=== PATIENT | female | born 1960 | race Caucasian/White ===

== ENCOUNTER → 2018-07-01 16:16 | Outpatient (REF) | payer BC, SELFPAY ==
--- NOTE | 2018-07-01 15:30 | PAPFT_PTH ---
PATIENT: Maegan Putnam LOC: [facility] U#:[id number] AGE/SX: 65/F ROOM: RE07/01/[address]: Lena Kinsey MD : 1960 BED: DIS: SPEC #: [id number] RECD: 07/01/18 18:15 STATUS: JACIEL REQ #: [id number] ELADIO: 07/01/18 15:[address]: Lena Kelley DEPT: [facility] Cytology RECD BY: Maren Harrison Tissues: 1 - CX/ENDOCX FOR PAP SMEARS Procedures: PAP THIN PREP/UVM Screening HPV DNA PROBE Comments: [id number]
== END ==
LOC: LBN 16:16
PROVIDERS: PCP Internal Medicine; Visit Provider Internal Medicine
DX: Z12.4 Encounter for screening for malignant neoplasm of cervix (principal); Z11.51 Encounter for screening for human papillomavirus (HPV)
CPT/HCPCS: 88142; 87624

== ENCOUNTER → 2018-07-05 10:14 | Outpatient (CLI) | payer BC, SELFPAY ==
[2018-07-05 12:54] LABS: Abs Immature Grans 0.01 k/cumm (0.0-0.09); Absolute Basophil Count 0.04 k/cumm (0.0-0.2); Absolute Eosinophil Count 0.21 k/cumm (0.0-0.7); Absolute Lymphocyte Count 2.65 k/cumm (1.2-3.4); Absolute Monocyte Count 0.48 k/cumm (0.11-0.7); Absolute Neutrophil Count 2.82 k/cumm (1.2-6.7); Basophils % 0.6; Eosinophils % 3.4; HCT 39.3 % (36.0-46.0); HGB 12.7 g/dL (12.0-15.5); Immature Grans % 0.2; Lymphocytes % 42.7; Mean Corp. HGB Concentration 32.3 g/dL (32.0-36.0); Mean Corpuscular Hemoglobin 30.2 pg (27.0-33.0); Mean Corpuscular Volume 93.3 fL (80-95); Mean Platelet Volume 11.9 fL (8.0-11.0); Monocytes % 7.7; Neutrophils % 45.4; Platelet Count 232 x1000/uL (130-400); RBC 4.21 m/cumm (4.00-5.20); RBC Distribution Width 12.6 % (11.7-14.6); White Blood Cell Count 6.21 k/cumm (4.4-10.8)
[2018-07-05 13:09] LABS: ALT 27 U/L (12-78); AST 24 U/L (15-37); Albumin 3.8 g/dL (3.4-5.0); Alkaline Phosphatase 89 U/L (46-116); Anion Gap 7.5 mmol/L (3-11); BUN 14 mg/dL (7-18); Bilirubin, Total 0.4 mg/dL (0.2-1.0); CO2 29.5 mmol/L (21.0-32.0); CREATININE 0.87 mg/dL (0.55-1.02); Calcium 9.2 mg/dL (8.5-10.1); Chloride 104 mmol/L (98-107); Glucose 86 mg/dL (70-100); Potassium 4.2 mmol/L (3.5-5.1); Sodium 141 mmol/L (136-145); Total Protein 7.3 g/dL (6.4-8.2)
== END ==
PROVIDERS: PCP Internal Medicine; Visit Provider Internal Medicine
DX: D64.9 Anemia, unspecified (principal); J30.9 Allergic rhinitis, unspecified; R92.8 Other abnormal and inconclusive findings on diagnostic imaging of breast
CPT/HCPCS: 36415; 80053; 85025

== ENCOUNTER 2018-07-05 14:00 | Outpatient (RCR) | payer BC, SELFPAY ==
--- NOTE | 2018-06-27 13:00 | IE_ITS ---
Date: 06/27/18 Referring: Graham Moreno MD M.D. Diagnosis: Right rotator cuff tendinitis versus partial tear P.T. Diagnosis: Right rotator cuff pathology SUBJECTIVE: History of Present Illness: Patient is a 58 year old female presenting with right shoulder pain that began after falling and landing on her outstretched arm about 5 and a half weeks ago. She tripped when she was walking and landed on her right arm and left knee. She describes her shoulder pain as achy that goes down anterior arm into lateral forearm. She feels occasional numbness in forearm. She feels like her arm popped out of place. X-rays of right shoulder were negative. She received corticosteroid injection from Dr. Moreno last week which she states made it feel really sore over the weekend but now she feels like she can move it a lot better than before the injection. She is able to wash her hair, get dressed easier, and reach better. She states she feels like her shoulder is 75% better since the fall. She is unable to lay flat at night in bed due to the pain. She is sleeping okay in an upright elevated position on her couch. She states ice helps. She has not tried heat. She is taking ibuprofen as needed for pain. She has follow up appointment in 2 months and is to call Dr. Moreno in 3 weeks to say how she s doing to see if an MRI is needed. She is having difficulty lifting arm overhead and reaching overhead. She is able to do housework using mostly her left side. She has difficulty doing yard work and is unable to kayak. She feels like she is lacking strength. She is right hand dominant. Her goal of physical therapy is to get her shoulder back to normal and avoid surgery. Pain Ratin-2/10 at rest, 5/10 at worst Pain Location: right shoulder down anterior arm to lateral forearm. Prior Level of Function: independent Current Level of Function: difficulty sleeping laying flat, lifting arm, reaching activities, yard work, kayaking Previous Treatment: Received corticosteroid injection by Dr. Moreno Social: Lives in home with her . She does not work. Comorbidities: none per patient report Falls in the last year: __X_Yes - How many? _1 in which this injury occurred Reported hospitalizations in the last year - No Medications: ibuprofen Quality of Life: Excellent Standardized Measures: DASH score: 32% impaired OBJECTIVE: Posture: rounded shoulders, forward head, thoracic kyphosis Gait: independent Palpation: slight tenderness over right greater tuberosity and biceps muscle belly. ROM: Cervical AROM flexion 50 degrees, extension 45 degrees, SB 35 degrees bilaterally, rotation WNL bilaterally. All motions pain free. Elbow flexion and extension WNL bilaterally. Right shoulder AROM flexion 135 degrees, abduction 100 degrees, extension 40 degrees, FIR to T8, ER 30 degrees. Left shoulder AROM flexion 150 degrees, abduction 170 degrees, extension 40 degrees, FIR to T6. Right shoulder PROM flexion 135 degrees, abduction 100 degrees, ER 30 degrees. Joint Accessory Motion: Slight hypomobility right glenohumeral into inferior and posterior directions. Strength: Right shoulder flexors 5/5, extensors 5/5, abductors 4+/5, IR 5/5, ER 4/5. Left shoulder strength 5/5 all muscle groups. Elbow strength 5/5 bilaterally. Neuro: intact to light touch bilateral UEs. Special Tests: Hawkin s Jared negative, Empty can positive for pain and weakness, Speeds positive for pain and weakness, Drop arm negative Treatment: IE: 51062 Patient Education: Patient educated in home exercise program including pendulums , scapular retraction, backwards shoulder rolls, ER door frame stretch, and supine wand flexion and to ice at home. Educated in importance of maintaining upright posture. Manual therapy: Right glenohumeral joint caudal distraction. Grade 1/2 inferior and posterior glenohumeral joint mobilizations. STM right anterior and posterior cuff, upper trapezius, and levator scapula. Cryotherapy x10 minutes to right shoulder in seated position. Direct treatment time: 50 minutes Total treatment time: 50 minutes ASSESSMENT: Patient is a 58 year-old female referred for PT services with the diagnosis of right rotator cuff tendinitis versus partial tear. Patient presents with clinical signs and symptoms consistent with right rotator cuff pathology as demonstrated by the following impairment level findings: pain, decreased ROM, impaired posture, decreased motor control Impairments are contributing to the following functional limitations: difficulty sleeping laying flat, lifting arm, reaching activities, yard work, kayaking Patient is assessed as: Low 09167 complexity, based on the following: History: See comorbidities and social history. Examination: See above for functional limitations and impairments. Presentation: Stable Decision-Making: Low complexity 32 % Disability based on DASH Patient requires skilled PT intervention to remediate the above functional limitations to return to: _X__ Premorbid level of function _X___ Return to full functional mobility Prognosis: Good STG: __4__ weeks. 1. Patient will report no more than 3/10 pain in the right shoulder and arm 2. Patient will demonstrate 10 degree improvement or better in right shoulder flexion, abduction, and ER AROM. 3. Patient will score 25% impaired or less on the DASH. 4. Independent HEP. LTG: __8__ weeks. 1. Patient will report no more than 2/10 pain in right shoulder and arm. 2. Patient will demonstrate right shoulder AROM WNL and equal to that of the left side. 3. Patient will demonstrate 5/5 strength all muscle groups right shoulder. 4. Patient will score 10% impaired or less on the DASH. 5. Independent HEP PLAN: Patient to be seen 2 x per week, for 8 weeks, adjusting frequency of visits per patient symptoms and response to treatment. If no improvements seen in 4-6 weeks recommend return to ortho for further intervention Treatment to include: Manual therapy - 76130: PROM, soft tissue stretching, joint mobilizations, STM, cross friction massage, TP release Therapeutic exercise - 67972:. A/AAROM, scapular stabilization, rotator cuff strengthening, education in HEP Postural and body mechanics education, taping techniques, cryotherapy and therapeutic ultrasound for pain relief. Will plan on discharge when above goals have been met. Thank you for this referral. Please do not hesitate to contact me with any questions or concerns regarding this patient's plan of care. Rena Kingsley, SPT Kelsey Barclay, MPT
--- NOTE | 2018-07-02 15:45 | PTTR_ITS ---
DATE: 07/02/18 SUBJECTIVE: Indicated her right shoulder has been extremely uncomfortable the last couple days. Has tried to perform her HEP but this just seems to make the pain worse, especially the cane stretch over head while lying on back. OBJECTIVE: Manual therapy: ([id number]). Mobilization of right mirtha-hum jt while in supine consisting of inferior and posterior glides, caudal and lateral distraction, as well as gentle AAROM throughout all planes. Very guarded with end range flexion at approximately 160 degrees. Was able to actively elevate arm to approximately 140 degrees while in standing today and 90 degrees abduction, with range limited by subjective report of discomfort. Also, very sensitive with end range IR, achieving only about 30 degrees active assistive ROM. Performed TFM to anterior cuff, PRT to posterior cuff and TPM to upper traps and lev scap. Indicated soft tissue work in the back of the shoulder was tender but felt really good. Therapeutic procedures ([id number]). * x HEP review: Discussed holding on cane stretch for end range flexion for a few days, substituting this with wall slides with left UE assisting or kevin flexion stretch with arm resting on table leaning forward. Is to continue with pendulums, scap retraction and shoulder circles, which she is able to demonstrate without increased discomfort. * x Provided skilled instruction in proper exercise performance * x Provided skilled manual cues to facilitate proper muscle recruitment and/ or movement pattern * x Electrical Stim Unattended - [id number]: Ended session with IFC and cryotherapy x15 minutes to right shoulder while in seated position. Discussed adding phonophoresis to program next session with supervising PT. Direct treatment time: 45 minutes Total treatment time: 60 minutes
--- NOTE | 2018-07-05 14:00 | PTTR_ITS ---
DATE: 07/05/18 SUBJECTIVE: Maegan indicates today that she was definitely noting improvement following our last therapy session. Has been holding on cane stretching and has been utilizing flexion stretch in the shower, sliding R arm up wall with help from the L and has found this to work very well. Ultrasound [id number]: Did receive ultrasound a 3 mhz, 50% duty cycle at 1.0w/cm2 to the R anterior cuff region x8 mins at 3 mhz, 50% duty cycle. Manual therapy: ([id number]). Did receive mobilization of the R GH joint while in supine position. Mobilization did include inferior/posterior glides, caudal distraction and AAROM throughout all planes as well as transverse friction massage to the anterior cuff, positional release to the posterior cuff and brief trigger point work throughout the upper traps. Post mobilization, the patient was able to actively achieve approximately 160 degrees of end range elevation with slight sensitivity and substitution. Therapeutic procedures ([id number]). Did start patient on AAROM with ranger pulleys today which she tolerated very well getting arm to approximately 160 degrees of flexion without discomfort, must end range pulling. Was able to tolerate this for approximately 3 mins. She also performed scap retraction with foam roll for 15 reps, holding for 3 seconds each. Review pendulum exercises to continue to do at home to help unload shoulder. Ended with IFC with cryotherapy x10 mins in seated position at no charge. Direct treatment time: 40 mins Total treatment time: 55 mins SG/dl
--- NOTE | 2018-07-09 09:01 | NT_ITS ---
07/09/18 Patient called and canc her appt for Sunday stating she was going to be leaving to go out of town for a few days. She will call to reschedule when she returns. SG/dl
== END 2018-07-19 23:59 | disposition home or self-care (01) ==
LOC: PT 14:00
PROVIDERS: PCP Internal Medicine; Referring Provider Student in an Organized Health Care Education/Training Program; Visit Provider Student in an Organized Health Care Education/Training Program
DX: M65.811 Other synovitis and tenosynovitis, right shoulder (principal)
CPT/HCPCS: 97014; 97035; 97110; 97140; 97161

== ENCOUNTER 2018-07-29 00:18 | Outpatient (CLI) | payer BC, SELFPAY ==
--- NOTE | 2018-07-29 11:49 | DI.MRI_ITS ---
SYMPTOM/DIAGNOSIS: RT SHOULDER INJURY M07.911, S49.91X, PAIN MRI RIGHT SHOULDER: Comparison is made with plain films dated 22 May 2018. Proton density and FS T2 axial and coronal and T1 FS T2 sagittal sequences were performed. There is a small joint effusion as well as fluid in the subacromial subdeltoid bursa. There is a full thickness tear of the supraspinatus tendon with retraction at the level of the tip of the acromion. There is no significant muscle atrophy. There is also abnormal signal in the infraspinatus tendon which appears at least partially torn. Subchondral cysts are seen in the posterior humeral head. The biceps, subscapularis and teres minor tendons appear intact. The labral defects are seen. Degenerative changes are noted in the superior labrum. IMPRESSION: Full thickness tear of the supraspinatus tendon with retraction. At least partial tear of the infraspinatus tendon.
== END 2018-07-29 00:38 ==
PROVIDERS: PCP Internal Medicine; Visit Provider Student in an Organized Health Care Education/Training Program
DX: M25.511 Pain in right shoulder (principal); M75.101 Unspecified rotator cuff tear or rupture of right shoulder, not specified as traumatic
CPT/HCPCS: 73221

== ENCOUNTER 2018-09-05 01:30 | Outpatient (CLI) | payer BC, SELFPAY ==
--- NOTE | 2018-09-05 12:16 | DI.MAMMO_ITS ---
SYMPTOM/DIAGNOSIS: SCREENING, Z12.31 MAMMOGRAMS: Mammograms were interpreted according to the usual protocol including computer analysis with CAD system, tomosynthesis and C view imaging. The breasts are of moderate radiodensity. There is no mass. There are no suspicious calcifications and there has been no significant interval change when compared with prior images. SUMMARY: No evidence of malignancy. Category 1. Follow up surveillance with routine annual screening mammography is recommended. Breast density, category B. SA ASSESSMENT OF FINDINGS: Negative. Category 1. Patient will receive a letter notifying them of these results. BI-RADS category B. There are scattered areas of fibroglandular density.
== END 2018-09-05 01:50 ==
PROVIDERS: PCP Internal Medicine; Visit Provider Internal Medicine
DX: Z12.31 Encounter for screening mammogram for malignant neoplasm of breast (principal)
CPT/HCPCS: 77063; 77067

== ENCOUNTER 2018-09-16 08:55 | Outpatient (CLI) | payer BC, SELFPAY ==
--- NOTE | 2018-09-16 12:51 | W.PREOPHP ---
Date of service: 09/16/18 Assessment and Plan (1) Right rotator cuff tear: Current visit: No Status: Acute Right rotator cuff repair. Details of surgery were discussed with patient as well as risks, and pertinent anatomy. All questions were answered. History of Present Illness Chief Complaint: Right shoulder injury Narrative: Maegan is a 58-year-old female who is been complaining of right shoulder pain since an injury that she sustained back in May. She states that she fell while trying to step onto a sidewalk, landing directly on her right side. Since then she has had difficulty reaching away from her body especially with any weight. What really bothers her the most is pain at night. She says she is not sleeping because of her shoulder pain. She has been doing physical therapy which has not helped at all. She also has had an injection in the right shoulder, which also did not help. Subsequently she ended up getting an MRI which showed a full-thickness rotator cuff tear. Because she has failed conservative treatments at this point, she elects to proceed with a right rotator cuff repair. Pertinent Surgical Information Patient denies history of hypertension, CVA, [place], angina, asthma, COPD, renal or liver disorders, hepatitis, bleeding disorders, diabetes, immune or thyroid disorders. No complications from anesthesia. Review of Systems Review of Systems All systems reviewed & are unremarkable except as noted in HPI and below Constitutional Denies fever(s) ENT Denies dizziness and Denies sore throat Cardiovascular Denies chest pain, Denies palpitations and Denies dyspnea Respiratory Denies dyspnea Gastrointestinal Denies abdominal pain, Denies melena, Denies hematochezia, Denies diarrhea, Denies nausea and Denies vomiting Genitourinary Denies hematuria and Denies dysuria Neurologic Denies dizziness Endocrine Denies palpitations [facility] Family History Mother Personal history of malignant neoplasm Father No problems noted. Sister Diabetes Grandfather No problems noted. Grandfather No problems noted. Grandmother Diabetes Heart disease Grandmother No problems noted. Sister No problems noted. Sister No problems noted. Sister No problems noted. Sister No problems noted. Son No problems noted. Daughter No problems noted. Daughter No problems noted. Medical History Sebaceous cyst of labia (Acute) Shoulder pain (Acute) Social History adopted: No foster care: No household members: spouse number of children: 3 number of grandchildren: 2 current occupational status: unemployed current occupation: homemaker Hx Recent Travel: No Smoking/Tobacco Use Status: Never alcohol intake: current alcohol intake frequency: holidays/special occasions only details: occasional substance use type: does not use seatbelt use: always additional social history: has been hiking this summer, lesions appeared after she increased her activity level. Surgical History Cystoscopy Lazy eye surgery Female Reproductive History Menstrual control method: none Menopause type: natural Meds Home Medications Medication Instructions Recorded Confirmed Type cholecalciferol (vitamin D3) 2,000 unit PO DAILY 07/04/17 09/16/18 History [Vitamin D3] flaxseed oil [[place]-3 Flaxseed Oil] 1,400 mg PO DAILY 07/04/17 09/16/18 History ibuprofen [Advil] 200 - 600 mg PO PRN PRN 06/19/18 09/16/18 History pediatric multivitamin no.76 2 tab PO DAILY PRN PRN 09/16/18 09/16/18 History [Flintstones Complete] Allergies Allergy/AdvReac Type Severity Reaction Status Date / Time No Known Allergies Allergy Unverified 09/16/18 08:04 Exam [facility] Head: normocephalic and atraumatic General nose exam: no nasal discharge Throat: uvula midline and no uvular edema Other: soft palate rises symmetrically, no erythema Eyes Conjunctivae: conjunctivae normal Sclera: sclerae normal Pupils: PERRL Resp Effort & Inspection: normal respiratory effort Auscultation: clear to auscultation bilaterally and no wheezes Cardio Rate: regular rate Rhythm: regular rhythm Heart Sounds: S1 normal, S2 normal and no murmurs Other: BP: 116/66
--- NOTE | 2018-09-16 12:56 | HPE_ITS ---
Date of service: 09/16/18 Assessment and Plan (1) Right rotator cuff tear: Current visit: No Status: Acute Right rotator cuff repair. Details of surgery were discussed with patient as well as risks, and pertinent anatomy. All questions were answered. History of Present Illness Chief Complaint: Right shoulder injury Narrative: Maegan is a 58-year-old female who is been complaining of right shoulder pain since an injury that she sustained back in May. She states that she fell while trying to step onto a sidewalk, landing directly on her right side. Since then she has had difficulty reaching away from her body especially with any weight. What really bothers her the most is pain at night. She says she is not sleeping because of her shoulder pain. She has been doing physical therapy which has not helped at all. She also has had an injection in the right shoulder, which also did not help. Subsequently she ended up getting an MRI which showed a full-thickness rotator cuff tear. Because she has failed conservative treatments at this point, she elects to proceed with a right rotator cuff repair. Pertinent Surgical Information Patient denies history of hypertension, CVA, [place], angina, asthma, COPD, renal or liver disorders, hepatitis, bleeding disorders, diabetes, immune or thyroid disorders. No complications from anesthesia. Review of Systems Review of Systems All systems reviewed & are unremarkable except as noted in HPI and below Constitutional Denies fever(s) ENT Denies dizziness and Denies sore throat Cardiovascular Denies chest pain, Denies palpitations and Denies dyspnea Respiratory Denies dyspnea Gastrointestinal Denies abdominal pain, Denies melena, Denies hematochezia, Denies diarrhea, Denies nausea and Denies vomiting Genitourinary Denies hematuria and Denies dysuria Neurologic Denies dizziness Endocrine Denies palpitations [facility] Family History Mother Personal history of malignant neoplasm Father No problems noted. Sister Diabetes Grandfather No problems noted. Grandfather No problems noted. Grandmother Diabetes Heart disease Grandmother No problems noted. Sister No problems noted. Sister No problems noted. Sister No problems noted. Sister No problems noted. Son No problems noted. Daughter No problems noted. Daughter No problems noted. Medical History Sebaceous cyst of labia (Acute) Shoulder pain (Acute) Social History adopted: No foster care: No household members: spouse number of children: 3 number of grandchildren: 2 current occupational status: unemployed current occupation: homemaker Hx Recent Travel: No Smoking/Tobacco Use Status: Never alcohol intake: current alcohol intake frequency: holidays/special occasions only details: occasional substance use type: does not use seatbelt use: always additional social history: has been hiking this summer, lesions appeared after she increased her activity level. Surgical History Cystoscopy Lazy eye surgery Female Reproductive History Menstrual control method: none Menopause type: natural Meds Home Medications Medication Instructions Recorded Confirmed Type cholecalciferol (vitamin D3) 2,000 unit PO DAILY 07/04/17 09/16/18 History [Vitamin D3] flaxseed oil [[place]-3 Flaxseed Oil] 1,400 mg PO DAILY 07/04/17 09/16/18 History ibuprofen [Advil] 200 - 600 mg PO PRN PRN 06/19/18 09/16/18 History pediatric multivitamin no.76 2 tab PO DAILY PRN PRN 09/16/18 09/16/18 History [Flintstones Complete] Allergies Allergy/AdvReac Type Severity Reaction Status Date / Time No Known Allergies Allergy Unverified 09/16/18 08:04 Exam [facility] Head: normocephalic and atraumatic General nose exam: no nasal discharge Throat: uvula midline and no uvular edema Other: soft palate rises symmetrically, no erythema Eyes Conjunctivae: conjunctivae normal Sclera: sclerae normal Pupils: PERRL Resp Effort & Inspection: normal respiratory effort Auscultation: clear to auscultation bilaterally and no wheezes Cardio Rate: regular rate Rhythm: regular rhythm Heart Sounds: S1 normal, S2 normal and no murmurs Other: BP: 116/66
== END 2018-09-16 09:15 ==
PROVIDERS: PCP Internal Medicine; Visit Provider Student in an Organized Health Care Education/Training Program
DX: S46.011A Strain of muscle(s) and tendon(s) of the rotator cuff of right shoulder, initial encounter (principal); Z01.818 Encounter for other preprocedural examination
CPT/HCPCS: NC

== ENCOUNTER 2018-09-19 05:58 | Day surgery (SDC) | payer BC, SELFPAY ==
[2018-09-19] VITALS (9 sets, daily range): BP systolic 115–136; BP diastolic 71–86; PULSE 61–76; RESP 12–18; TEMP 36.4–36.7; O2SAT 94–99
[2018-09-19] MEDS: Lactated Ringers 1,000 ML 80 ML IV ×2 (06:53→09:54)
--- NOTE | 2018-09-19 07:00 | PDOC.DSDIS_ITS ---
Discharge Plan Disposition Patient Disposition: HOME Condition: Good Discharge Details Attending Provider: Graham Moreno Primary Care Provider: Lena Naranjo Home Meds and New Rx's Prescriptions: New ibuprofen 600 mg tablet 600 mg PO TID PRNQty: 90 RF: 3 acetaminophen 500 mg capsule 1,000 mg PO Q8H PRN (Reason: pain) Qty: 90 RF: 0 oxycodone 5 mg tablet 5 mg PO Q4H Qty: 18 RF: 0 Continue cholecalciferol (vitamin D3) [Vitamin D3] 2,000 UNIT capsule 2,000 unit PO DAILY RF: 0 flaxseed oil [[place]-3 Flaxseed Oil] 1,000 MG capsule 1,400 mg PO DAILY RF: 0 pediatric multivitamin no.76 [Flintstones Complete] Tablet,Chewable 2 tab PO DAILY PRN PRNRF: 0 Discontinued ibuprofen [Advil Liqui-Gel] 200 MG capsule 200 - 600 mg PO PRN PRNRF: 0 Discharge Instructions Stand Alone Forms: Tiffanie enriquez/DOLORES Equipment/Supplies: Sling Activity:: In sling except for hygiene Remove Dressings/Wound Care:: 72 hours Shower/Bathe:: 72 hours Diet:: As Tolerated Discharge Orders Discharge Orders: Discharge Order (Routine); Ordered 09/19/18 Ordered By: Graham Moreno DS: Diagnosis Discharge Diagnosis (1) Right rotator cuff tear: Status: Acute
[2018-09-19] MEDS: Bupivacaine 0.25% Pres-Free 30 ML VIAL (07:24)
[2018-09-19] MEDS: Bupivacaine LIPOSOME/PF 133 MG/10 ML VIAL IJ (07:24)
[2018-09-19] MEDS: HYDROmorphone 2 MG/ML VIAL IVP ×2 (09:53→10:18)
[2018-09-19] MEDS: fentaNYL 100 MCG/2 ML VIAL IVP ×2 (10:07→10:32)
[2018-09-19] MEDS: oxyCODONE 5 MG TAB PO ×2 (11:16→11:52)
--- NOTE | 2018-09-19 12:15 | ROE_ITS ---
Date of service: 09/19/18 Time of Service: 12:06 Operative Note DATE OF PROCEDURE: 09/19/18 PRE-OP DIAGNOSIS: Right SLAP tear, biceps tendinitis, rotator cuff tear POST-OP DIAGNOSIS: same PROCEDURE: - Arthroscopic Rotator Cuff Repair - Extensive debridement of anterior and posterior glenohumeral joint and rotator cuff - Subacromial Debridement with Acromioplasty SURGEON: Graham Moreno ACID REGENERATOR: Angel Ford ANESTHESIA: GETA and regional ESTIMATED BLOOD LOSS: 0 PATHOLOGY: none sent COMPLICATIONS: None Patient was transported to: PACU Patient's condition: stable Indications: I have seen Maegan in clinic for a painful shoulder. Pathology was confirmed based on MRI and exam findings. Nonoperative measures were exhausted but disability and pain persisted. I discussed shoulder arthroscopy and procedures. I reviewed the risks of the procedures to include, but not limited to, bleeding, infection, pain, stiffness, damage to nerves or vessels, recurrence, hardware failure, blood clot. Despite these risks, the patient elected to proceed. Findings: A diagnostic arthroscopy was performed with the following findings: - Glenohumeral Joint: No significant arthritic changes - Labrum: Fraying and tearing was seen from approximately 11:00 to 2:00 posterior to anterior with involvement of the biceps anchor - Cuff: There is a large crescent type tear approximately 1-1/2 cm in width - Biceps: Fraying and inflammatory changes were seen - Subacromial: Significant inflammation and bursitis, torn rotator cuff as described above, and spurring Procedure Description: Maegan was greeted in the preoperative holding area where the correct side was identified and marked. The consent was reviewed with the patient and signed. The history and physical was updated. All questions were answered. Maegan was taken back to the PACU for administration of an intrascalene nerve block. Maegan was then taken to the operating room. The patient was placed into the supine position on the operating room table. A general anesthetic was administered. Maegan was then positioned in the beach chair position. All bony prominences were well padded. The head was placed in a foam overhead foreman in a neutral position. Prophylactic antibiotics in the form of cefazolin were administered. The right arm/shoulder was then prepped with Chloraprep and draped in a standard fashion with stockinette and shoulder drape. A timeout to confirm correct identity, side and site, procedure, allergies, anesthesia, and medical concerns was performed. The arm was placed into a pneumatic siu, SPIDER2. The shoulder arthroscopy was then performed. The glenohumeral joint was injected with 20 cc of normal saline with good flow back. A standard posterior portal was made and the joint was entered atraumatically with a blunt arthroscope. Once inside we had good visualization of the structures of the glenohumeral joint. An anterior portal was established with spinal needle localization. A 6.5 mm cannula was inserted. A probe was then used to perform a diagnostic arthroscopy. There is noted to be no significant cartilage damage of the glenoid humeral joint. The labrum was torn and frayed from approximately 11 to 2:00, posteriorly to anteriorly. This involve the biceps anchor. There were no loose bodies in the inferior pouch. The superior rotator cuff was torn. This involved the majority of the crescent with mild retraction of the cable. The biceps tendon had both some tearing and inflammatory change seen along its course. The subscapularis had some fraying at its insertion site but there is no significant pull off of the lesser tuberosity. Using the letter cautery device to perform a biceps tenotomy. Using both elect cautery and the shaver to perform a debridement of the posterior and anterior labrum as well as the undersurface the rotator cuff. I lightly debrided the fraying of the subscapularis tendinous insertion to promote some healing. The rotator interval was also opened. The arthroscope was then inserted into the subacromial space. The 6.5 mm cannula was placed lateral to the CA ligament. A complete bursectomy is performed anteriorly, posteriorly, and laterally with electrocautery and shaver. This had excellent exposure of the rotator cuff. The rotator cuff tear was now appreciated. There was a large anterolateral spur. Using a spinal needle a lateral portal was established. This became the working portal. A 7.5 mm cannula was inserted here. A second posterior lateral portal was then made which would be the viewing portal. With the scope in the posterior lateral aspect of the subacromial space I then completed the debridement from the lateral position. The cuff tear was a large crescent type tear which was easily visible. Using the shaver I debrided down the tuberosity and its footprint to promote healing decorticate the bone. 2 Medial Row anchors were placed. Using retrograde suture passing device, espressew 2, placed 4 horizontal mattress sutures into the tendon. These nicely reduce the rotator cuff tear to the tuberosity and the footprint. Starting from anterior to posterior I then tied each with standard knot tying techniques. This closed down the opening between the rotator cuff of the joint and reapproximated the rotator cuff tendons. With all for now reapproximated I did had space over the lateral humerus for a lateral row. Starting anteriorly I used one suture limb from each of the horizontal mattresses to feed into the knotless, lateral row anchor. When he grows placed anteriorly. The repeat is process posteriorly. This really nicely laid down the tendon on to the bone. The bone quality of the superior portion of the lateral humerus was not the best but neither suture anchor was able to be pulled out or dislodged prior to seating. A 5.0 mm abner was then inserted from the posterior portal. The anterolateral corner of the acromion was then resected in plane with the posterior slope of the acromion. The scope equipment was removed from the shoulder. Excess fluid was evacuated. The portal sites were closed with 3-0 Monocryl. The wounds were dressed with Steri-Strips, 4 x 4's, ABDs, Medipore tape. A sling was applied. The patient tolerated the procedure well and was returned to the Same Day Surgery area in a stable condition suffering no known complication.
== END 2018-09-19 13:55 | disposition home or self-care (01) ==
PROVIDERS: PCP Internal Medicine; Visit Provider Student in an Organized Health Care Education/Training Program
PROC: (CPT 29827; principal; 2018-09-19 07:30)
PROC: (CPT 23430; 2018-09-19 07:30)
DX: S46.091A Other injury of muscle(s) and tendon(s) of the rotator cuff of right shoulder, initial encounter (principal); S43.421A Sprain of right rotator cuff capsule, initial encounter; W18.30XA Fall on same level, unspecified, initial encounter; M75.21 Bicipital tendinitis, right shoulder; M75.51 Bursitis of right shoulder
CPT/HCPCS: 29827; 29823; 29826; 76942; J0131; J0690; J1100; J1885; J2250; J2405; J3010; L3670

== ENCOUNTER 2019-10-13 02:20 | Outpatient (CLI) | payer OTHER, SELFPAY ==
--- NOTE | 2019-10-13 10:52 | DI.MAMMO_ITS ---
EXAM: MG MAMMO SCREENING CLINICAL HISTORY: screening, Z12.39 TECHNIQUE: Mammograms were interpreted according to the usual protocol including computer analysis w [employer] CAD system, tomosynthesis and C-view imaging. COMPARISON: [id number] FINDINGS: The breasts are composed of scattered areas of fibroglandular density, breast density category B. Th ere are no suspicious masses or suspicious microcalcifications. There has been no significant interva l change when compared with the prior images. IMPRESSION: Category 1, negative mammogram. Yearly screening mammography is recommended. BI-RADS Cat 1 - Negative Breast Density - Category B - Scattered areas of fibroglandular density
== END 2019-10-13 02:40 ==
PROVIDERS: PCP Internal Medicine; Visit Provider Internal Medicine
DX: Z12.31 Encounter for screening mammogram for malignant neoplasm of breast (principal)
CPT/HCPCS: 77063; 77067

== ENCOUNTER 2021-05-02 19:09 | Outpatient (REF) | payer OTHER, SELFPAY ==
[2021-05-02 17:35] LABS: Bilirubin Negative (Negative); Blood Small (Negative); Clarity Clear (Clear); Glucose Negative (Negative); Ketones Negative (Negative); Leukocyte Esterase Negative (Negative); Nitrite Negative (Negative); Specific Gravity >= 1.030 (1.005-1.025); Urobilinogen 0.2 EU/dL (Up TO 0.2)
[2021-05-02 17:45] LABS: Epithelial Cells Moderate HPF (Negative); WBC 0-2 HPF (0-5)
[2021-05-02 17:46] LABS: Bacteria Negative HPF (Negative); C & S Indicated? No; Casts Negative LPF (Negative); Crystals Negative HPF (Negative); Mucus Negative (Negative); Other Cells Negative (Negative)
== END 2021-05-02 19:10 | disposition home or self-care (01) ==
LOC: LBN 19:09
PROVIDERS: PCP Nurse Practitioner; Visit Provider Nurse Practitioner Gerontology
DX: R31.29 Other microscopic hematuria (principal)
CPT/HCPCS: 81003; 81015

== ENCOUNTER 2021-08-15 19:51 | Outpatient (CLI) | payer OTHER, SELFPAY | END 2021-08-15 19:52 | disposition home or self-care (01) | LOC: LBO 19:54 | PROVIDERS: PCP Nurse Practitioner; Visit Provider Nurse Practitioner | DX: Z13.1 Encounter for screening for diabetes mellitus (principal) | CPT/HCPCS: 36415; 83036 ==

== ENCOUNTER 2021-09-01 01:26 | Outpatient (CLI) | payer OTHER, SELFPAY ==
--- NOTE | 2021-09-01 07:00 | DI.MAMMO_ITS ---
Exam(s) MAMMO SCREENING EXAM: MAMMO SCREENING CLINICAL HISTORY: screening,Z12.39 TECHNIQUE: Mammograms were interpreted according to the usual protocol including computer analysis w [employer] CAD system, tomosynthesis and C-view imaging. COMPARISON: FINDINGS: The breasts are of moderate density with fairly symmetrical distribution of fibroglandular tissue. N o dominant mass or clumped microcalcification is identified in either breast. The current examinatio n is compared with previous examinations including September 2019 and there has been no gross interval change in appearance in comparison with the prior studies. IMPRESSION: No specific evidence of malignancy at this time. Routine screening examinations are suggested at yea rly intervals in this age group according to the ACS ACR guidelines. BI-RADS Category 1 - Negative Breast Density - Category B - Scattered areas of fibroglandular density
== END 2021-09-01 01:46 ==
PROVIDERS: PCP Nurse Practitioner; Visit Provider Nurse Practitioner
DX: Z12.31 Encounter for screening mammogram for malignant neoplasm of breast (principal)
CPT/HCPCS: 77063; 77067

== ENCOUNTER 2021-10-19 00:22 | Outpatient (CLI) | payer OTHER, SELFPAY ==
--- NOTE | 2021-10-19 08:15 | DI.DEXA_ITS ---
Exam(s) XR DEXA BONE DENSITY W/WO JUAN CARLOS EXAM: XR DEXA BONE DENSITY W/WO JUAN CARLOS CLINICAL HISTORY: screening FOR OSTEOPOROSIS IN POSTMENOPAUSAL WOMAN, Z78.0 TECHNIQUE: Routine DEXA evaluation of the lumbar spine, hip, or forearm. COMPARISON: No exams were available for comparison FINDINGS: Performed on a Hologic unit. Lateral image: No compression fracture evident. Lumbar Spine total T-score: -2.0 Hip total T-score:0.4 Independent reading at the level of the femoral neck yields at T-score of 0.2. Forearm total T-score: 0.1 IMPRESSION: Bone mineral density measures in the osteopenia range. Fracture risk is moderate. Note: Any spine fracture indicates 5x risk for subsequent spine fracture and 2x risk for subsequent h ip fracture. World Health Organization criteria for BMD interpretation classify patients: Normal...... T- Score at or above -1.0 Osteopenic... T- Score between -1.0 and -2.5 Osteoporosis... T-Score at or below -2.5
== END 2021-10-19 00:42 ==
PROVIDERS: PCP Nurse Practitioner; Visit Provider Nurse Practitioner
DX: Z78.0 Asymptomatic menopausal state (principal); Z13.820 Encounter for screening for osteoporosis; M85.88 Other specified disorders of bone density and structure, other site
CPT/HCPCS: 77080

== ENCOUNTER 2022-09-21 02:58 | Outpatient (CLI) | payer BC, SELFPAY ==
[2022-09-21 13:02] LABS: Vitamin D 25 Total 32.5 ng/mL (30-100)
[2022-09-21 13:29] LABS: Anion Gap 7.3 mmol/L (3-11); BUN 16 mg/dL (7-18); CO2 28.7 mmol/L (21.0-32.0); CREATININE 0.8 mg/dL (0.55-1.02); Calcium 9.2 mg/dL (8.5-10.1); Calculated LDL 116 mg/dL (<100); Chloride 108 mmol/L (98-107); Cholesterol 193 mg/dL (<200); Estimated GFR 82.74 (mL/min/1.73m2); Glucose 91 mg/dL (74-106); HDL Cholesterol 66 mg/dL (40-60); Potassium 3.9 mmol/L (3.5-5.1); Sodium 144 mmol/L (136-145); Triglyceride 57 mg/dL (<150)
== END 2022-09-21 02:59 | disposition home or self-care (01) ==
LOC: LOS 02:58
PROVIDERS: PCP Nurse Practitioner; Visit Provider Nurse Practitioner Family
DX: R73.03 Prediabetes (principal); R79.89 Other specified abnormal findings of blood chemistry
CPT/HCPCS: 36415; 80048; 80061; 82306; 83036

== ENCOUNTER 2022-10-26 09:33 | Outpatient (REF) | payer BC, SELFPAY ==
--- NOTE | 2022-10-26 09:00 | ORMUBX_PTH ---
PATIENT: Maegan Putnam LOC: [facility] U#:[id number] AGE/SX: 62/F ROOM: RE10/26/[address]: Moshe Huertas MD : 1960 BED: DIS: 10/26/2022 SPEC #: [id number] RECD: 10/26/22 15:54 STATUS: JACIEL REQ #: [id number] ELADIO: 10/26/22 09:[address]: Moshe Huertas DEPT: Surgical Specimen RECD BY: Maren Harrison ENTERED: 10/26/22 15:55 SP TYPE: ORMUBX OTHR DR: Valarie Storm, ALESSANDRA Tissues: 1 - MUCOSA, NOS Procedures: GROSS AND MICRO LEVEL 4 Comments: [id number]
== END 2022-10-26 09:34 | disposition home or self-care (01) ==
LOC: LBN 09:33
PROVIDERS: PCP Nurse Practitioner Family; Visit Provider Otolaryngology
DX: D10.39 Benign neoplasm of other parts of mouth (principal)
CPT/HCPCS: 88305

== ENCOUNTER → 2023-07-05 01:59 | Outpatient (CLI) | payer BC, SELFPAY ==
--- NOTE | 2023-07-05 08:05 | DI.CT_ITS ---
Exam(s) CT ABDOMEN PELVIS WO/W EXAM: CT ABDOMEN PELVIS WO/W CLINICAL HISTORY: continued hematuria,R31.9. TECHNIQUE: Imaging Protocol: Axial computed tomography images with coronal and sagittal reformatted images were created and reviewed CONTRAST MATERIAL: Intravenous: Omnipaque-350 100cc Oral: None COMPARISON: CT ABD/PELVIS WO W CONTRAST from 01/22/2018 FINDINGS: VISUALIZED LUNG BASES: No nodules nor pleural effusions evident. ABDOMEN: There is no ascites. LIVER: There are no focal hepatic lesions evident. No dilated intrahepatic ducts. GALLBLADDER/BILIARY: No obvious gallbladder pathology. CBD is not dilated. PANCREAS: No evidence of pancreatic mass nor dilatation of the pancreatic duct. SPLEEN: Spleen is not enlarged. No obvious intrasplenic lesions. Splenic and portal veins are paten t. ADRENALS: There are no significant adrenal masses. KIDNEYS:There is a cyst in the left kidney which has increased in size from 2018, presently measuring 3 by 3.4 cm. There is a solitary 2-3 millimeter calculus in lower pole calyx of the right kidney.. No solid renal masses. No hydronephrosis nor hydroureter. There is a solitary nondilated ureter on each side. No significant filling defects in the renal pelves nor within the nondilated ureters.. URINARY BLADDER: There is irregularity of base of the bladder, subtle but evident on the sagittal marielena ges. No radiopaque calculi in the bladder. ABDOMINAL AORTA: Abdominal aorta is not enlarged. LYMPH NODES:There is no retroperitoneal nor paraaortic adenopathy. ABDOMINAL WALL: No evidence of significant anterior abdominal wall nor inguinal hernia. GI: There is no evidence of bowel obstruction, free air, nor abscess. PELVIS: GI: No evidence of appendicitis.There are multiple diverticuli in the sigmoid. No evidence of obviou s acute diverticulitis. LYMPH NODES: There is no intrapelvic nor inguinal adenopathy. REPRODUCTIVE: Uterus and adnexal regions appear unremarkable. No free fluid URINARY BLADDER: As above OSSEOUS: There are no fractures. There is anterolisthesis L5 upon S1 due to pars defects at L5 level . Also advanced disc space narrowing at the L5-S1 level. IMPRESSION: 1. There is a small 3 millimeter nonobstructive calculus in lower pole calyx of the left kidney. No other renal calculi evident. 2. There is a solitary benign 3 x 3.4 cm cyst in the left kidney. No solid renal masses. 3. Subtle irregularity of the urinary bladder base, best seen on the 10 minutes delay sagittal recons tructed images. Cannot exclude subtle bladder neoplasm and cystoscopy is recommended RADIATION DOSE DELIVERED: 2,984.03mGy.cm Total DLP DATA REPOSITORY: All CT scans at this facility are submitted to the National Radiology Data Registry (NRDR) Dose Index Registry (DIR) with the [employer] (ACR). RADIATION OPTIMIZATION: All CT scans at this facility use at least one of these dose optimization te chniques: automated exposure control; mA and/or kV adjustment per patient size (includes targeted exa ms where dose is matched to clinical indication); or iterative reconstruction.
[2023-07-05 12:39] LABS: Estimated GFR 62.91 (mL/min/1.73m2)
[2023-07-05] MEDS: Omnipaque 350 MG/ML 100 ML BTL IJ (13:07)
[2023-07-05] MEDS: Normal Saline - Diluent 50 ML VIAL IJ (13:08)
== END ==
PROVIDERS: PCP Nurse Practitioner Family; Visit Provider Nurse Practitioner Gerontology
DX: N28.1 Cyst of kidney, acquired (principal)
CPT/HCPCS: 74178; 82565; J3490

== ENCOUNTER 2023-08-02 11:16 | Day surgery (SDC) | payer BC, SELFPAY ==
[2023-08-02 11:31] VITALS: BP 115/84; PULSE 64; RESP 16; TEMP 36.5; O2SAT 96
--- NOTE | 2023-08-02 11:47 | W.PM.HP.N ---
Date of service: 08/02/23 Time of Service: 11:47 Assessment and Plan Assessment and plan (1) Microscopic hematuria: Status: Acute Assessment and plan: We will plan to do cystoscopy to complete her hematuria work-up. We will be prepared to do a transurethral resection/biopsy of any bladder lesions that is visible. History of Present Illness History of Present Illness Chief Complaint: Microscopic hematuria Narrative: This is a 63-year-old woman who has a history of microscopic hematuria. She had a negative hematuria work-up over 3 years ago. She continues to have findings of microscopic hematuria. Her CT urogram showed a nonobstructing right kidney stone, a left simple renal cyst and the possibility of a bladder mass. She presents for cystoscopy with possible transurethral resection. Review of Systems Narrative: No fevers or chills No vision change or dysphasia No diabetes or thyroid dysfunction No shortness of breath, cough or hemoptysis No chest pain or palpitations No nausea, vomiting, hepatitis, ulcers, jaundice No seizures, strokes or peripheral neuropathy No bleeding disorders or anemia No gout PFSH All Active Problems Lesion of uvula (Acute) left side Skin lesions, generalized (Acute) Screening for colon cancer (Acute) Screening for hyperlipidemia (Acute) Prediabetes (Acute) Low vitamin D level (Acute) Hyperhidrosis (Acute) Microscopic hematuria (Acute) 03/2020: seen by Dr. Stuart- repeat w/u in 3-5 years if ongoing Colon polyp (Acute) HYPERPLASTIC;DR. OFE HARRELL-08/18/11 Varicose veins of both lower extremities (Acute) Medical History Allergic rhinitis Alopecia Dysfunctional uterine bleeding Right rotator cuff tear S/P arthroscopic repair on 09/19/2018 Sebaceous cyst of labia small multiple lesions on bilateral labia majora Shoulder pain Right shoulder patient will have a rotator cuff repair in September 2018 Surgical History Cystoscopy History of eye surgery Lazy eye surgery age 4 Family History Mother , age 68 Personal history of malignant neoplasm BLADDER Bladder cancer Father No problems noted. Sister Diabetes Maternal Grandfather No problems noted. Paternal Grandfather No problems noted. Maternal Grandmother Diabetes Heart disease Paternal Grandmother No problems noted. Sister No problems noted. Sister No problems noted. Sister No problems noted. Sister No problems noted. Son No problems noted. Daughter No problems noted. Daughter No problems noted. Social History Smoking/Tobacco Use Status: Never Smoking risk assessment performed?: Yes Alcohol Intake: current Alcohol Intake frequency: a few times a week Alcohol type: wine Details: occasional Drug use: Never Substance use type: does not use Adopted: No Caregiver/Support person: No Foster care: No Household members: spouse Housing: house Number of Children: 3 number of grandchildren: 2 Communication Needs: None Do you need help understanding health information?: Rarely current occupation: homemaker Pets and animals: Yes Pets and animals: cat(s) and dog(s) Sexually active: Yes Do you think of yourself as: straight/heterosexual Current gender identity: female What is your relationship status?: How often do you talk on the phone with friends or family?: three or more times per week How often do you get together with friends or relatives?: three or more times per week How often do you attend adventist or jewish services?: 4 or more times per year Do you belong to any clubs or organized social groups?: no Panel score (0-1 are the most socially isolated patients): 3 What type of physical activity do you participate in: walking Frequency: 3-4 times per week Lindsay/Buddhist: Sabianism Seatbelt use: always Drive intox or ride w/intox inventory associate and driver: No Do you feel safe at home: Yes Do you feel safe in your relationship?: Yes Female Reproductive History Menstrual control method: none Menopause type: natural History History 4 Para Hx # Term Pregnancies 3 Multiple births Hx # Pregnancies Ectopic pregnancies AB induced Hx Number of Living Children AB spontaneous Meds Allergies and Home Medications Allergies Allergy/AdvReac Type Severity Reaction Status Date / Time No Known Allergies Allergy Verified 08/02/23 11:27 Home Medications Medication Instructions Recorded Confirmed Type cholecalciferol (vitamin D3) 50 2,000 unit PO DAILY 07/04/17 08/02/23 History mcg (2,000 unit) capsule (Vitamin D3) pediatric multivitamin no.76 2 tab PO DAILY PRN PRN 09/16/18 08/02/23 History (Flintstones Complete chewable tablet) Exam Const General: cooperative Neck Neck: submandibular swelling Resp Effort & Inspection: normal respiratory effort Auscultation: clear to auscultation bilaterally Cardio Rate: regular rate Rhythm: regular rhythm GI Palpation: soft and no masses Neuro General: patient alert, patient awake and patient oriented x3 Results Last Vital Signs Temp 36.5 C 08/02/23 11:31 Pulse 64 08/02/23 11:31 Resp 16 08/02/23 11:31 BP 115/84 08/02/23 11:31 Pulse Ox 96 08/02/23 11:31 Time Spent Time spent with Patient: <40 minutes Time was spent: care coordination
[2023-08-02] MEDS: Lactated Ringers 1,000 ML 80 ML IV (12:01)
--- NOTE | 2023-08-02 12:31 | W.ANESPRE ---
General Info Date of Service Date Performed: 08/02/23 Height: 5 ft 4 in Weight: 82.4 kg Body Mass Index (BMI): 31.1 Surgical Procedure: Operation Date: 08/02/23 13:10 Proposed Procedure Side Surgeon p Cystoscopy/ Possible Transurethral Resection Bladder Tumor Huy Stuart MD Meds Allergies and Home Medications Allergies Allergy/AdvReac Type Severity Reaction Status Date / Time No Known Allergies Allergy Verified 08/02/23 11:27 Home Medication Medication Instructions Recorded cholecalciferol (vitamin D3) 50 2,000 unit PO DAILY 07/04/17 mcg (2,000 unit) capsule (Vitamin D3) pediatric multivitamin no.76 2 tab PO DAILY PRN PRN 09/16/18 (Flintstones Complete chewable tablet) Current Visit Medications: Current Medications Generic Name Dose Route Start Last Admin Trade Name Freq PRN Reason Stop Dose Admin Ringer's Solution 1,000 mls @ 80 mls/hr 08/02/23 06:00 08/02/23 12:01 IV 08/31/23 23:59 80 mls/hr INFUSION ADDI Administration Cefazolin Sodium/Dextrose 2 gm in 50 mls @ 100 mls/hr 08/02/23 06:00 Ancef Duplex IVPB 08/02/23 16:00 PREOP ADDI IV Miscellaneous Supplies 1 each 08/02/23 06:00 Iv Access IV 08/31/23 23:59 DIRECTED ADDI Sodium Chloride 0 ml 08/02/23 06:00 Normal Saline Flush 10 Ml Syr IV 08/31/23 23:59 PRN PRN Sodium Chloride 0 ml 08/02/23 06:00 Normal Saline 10 Ml Vial IJ 08/31/23 23:59 DIRECTED PRN Sterile Water 0 ml 08/02/23 06:00 Water,Injection,Sterile 10 Ml Vial IJ 08/31/23 23:59 DIRECTED PRN PFSH Active Problems Active Problems: Problem Status Onset Code Lesion of uvula K13.70 Skin lesions, generalized L98.9 Screening for colon cancer Z12.11 Screening for hyperlipidemia Z13.220 Prediabetes R73.03 Low vitamin D level R79.89 Hyperhidrosis R61 Microscopic hematuria R31.29 Colon polyp K63.5 Varicose veins of both lower extremities I83.93 Medical History Medical History Allergic rhinitis Alopecia Dysfunctional uterine bleeding Right rotator cuff tear S/P arthroscopic repair on 09/19/2018 Sebaceous cyst of labia small multiple lesions on bilateral labia majora Shoulder pain Right shoulder patient will have a rotator cuff repair in September 2018 Surgical History Surgical History Cystoscopy History of eye surgery Lazy eye surgery age 4 Tobacco Smoking/Tobacco Use Status: Never Passive smoking exposure: Yes Alcohol Alcohol Intake: current Alcohol intake frequency: a few times a week Alcohol type: wine Details: occasional Substance Use Substance use: Never Substance use type: does not use Prental History History 4 Para Hx # Term Pregnancies 3 Multiple births Hx # Pregnancies Ectopic pregnancies AB induced Hx Number of Living Children AB spontaneous Vital Signs and Lab Results Vital Signs Most Recent Vital Signs in EMR: Most Recent Vital Signs Temp Pulse Resp BP Pulse Ox 36.5 C 64 16 115/84 96 08/02/23 11:31 08/02/23 11:31 08/02/23 11:31 08/02/23 11:31 08/02/23 11:31 Lab Results Blood Type / Crossmatch: No Data to Display Complete Blood Count: No Data to Display Complete Metabolic Panel: Creatinine 1.0 mg/dL (0.55-1.02) 07/05/23 12:20 Est GFR (CKD-EPI 2020) 62.91 (mL/min/1.73m2) 07/05/23 12:20 Liver Function Panel: No Data to Display Coagulation Panel: No Data to Display Cardiac Panel: No Data to Display Arterial Blood Gas: No Data to Display Venous Blood Gas: No Data to Display Pancreas Panel: No Data to Display Thyroid Panel: No Data to Display Infectious Disease: No Data to Display Blood Cultures: No Data to Display Toxicology Panel: No Data to Display Anesthesia Assessment and Plan Anesthesia History Personal History: No History of Anesthesia Complications Family History: No Family History of Anesthesia Complications Exercise Tolerance Exercise Tolerance: Metabolic Equivalents>4 Pertinent Negatives Pertinent Negatives: No Symptoms of GERD, No Major Cardiovascular Symptoms or Complaints, No Major Pulmonary Symptoms or Complaints and No History of CVA/TIA Cardiac & Pulmonary Exam Cardiac Exam: Normal S1/S2 Heart Sounds Pulmonary Exam: Clear Bilateral Breath Sounds Implantable Cardiac Device Does patient have a Pacemaker or an ICD?: No Airway Exam Known Difficult Airway: No Mallampati Class: 2 Mouth Opening: Normal (> 3cm) Thyromental Distance: Greater than 3 cm Neck Range of Motion: Full ROM Neck Circumference: Normal Teeth Condition: Normal Dentition ASA Classification ASA Score: ASA 2 Emergency Case?: No NPO Status NPO Status: NPO Clears >2 hours, Solids >8 hours Anesthesia Plan Resuscitation Status: Full Code Anesthesia Technique: General Anesthesia Airway Planned: Natural Airway Monitors Used: Standard Monitors
[2023-08-02 12:32] VITALS: BMI 31.1
[2023-08-02] MEDS: ceFAZolin 2 GM/50 ML BAG IVPB (12:53)
[2023-08-02] MEDS: Lidocaine 2% Jelly 6 ML SYR (13:01)
--- NOTE | 2023-08-02 13:12 | W.PM.OP ---
Date of service: 08/02/23 Time of Service: 13:12 Operative Note Operative Note DATE OF PROCEDURE: 08/02/23 PRE-OP DIAGNOSIS: Microscopic hematuria POST-OP DIAGNOSIS: same urethral caruncle cystocele PROCEDURE: cystoscopy SURGEON: Huy Stuart ANESTHESIA TYPE: Local By Surgeon and General:No Airway Refer to Anesthesia Record ESTIMATED BLOOD LOSS: 0 PATHOLOGY: none sent COMPLICATIONS: None Patient was transported to: same day Patient's condition: stable Implants: none Indications: This is a 63-year-old woman who has a history of microscopic hematuria. She was evaluated with a CT urogram which showed a nonobstructing right lower pole stone, simple left renal cyst and the possibility of a mass at the base of the bladder. She presents for cystoscopy with possible transurethral resection of any visible bladder tumor Findings: No bladder tumor Urethral carbuncle Cystocele Procedure Description: The patient was given preoperative IV antibiotics and brought to the operating room on 08/02/2023. After successful induction of general anesthesia without intubation, she was placed in the dorsal lithotomy position. Her genitalia was prepped and draped. An external exam revealed a urethral carbuncle. There was also a reducible cystocele. To present Xylocaine jelly was instilled into the urethra to act as a local anesthetic. A 22 Montenegrin rigid cystoscope was passed through the urethra into the bladder. The bladder was inspected using both a 30 and 70 degree lens. Both ureteral orifices appeared normal with no blood coming from either side. The base of the bladder was somewhat distended but there was no visible papillary or nodular lesion in the area of the CT abnormality. The remainder of the bladder showed no mucosal-based lesions and no erythematous areas. The bladder was emptied and the cystoscope was withdrawn. Based on today's examination there is no evidence of uropathology.
--- NOTE | 2023-08-02 13:14 | W.PM.DSUDISC ---
Date of service: 08/02/23 Time of Service: 13:15 Discharge Plan Disposition Patient Disposition: Home Condition: Stable Discharge Details Reason For Visit: microscopic hematuria Attending Provider: Huy Stuart Primary Care Provider: Valarie Storm Home Meds and New Rx's Prescriptions: No Action cholecalciferol (vitamin D3) [Vitamin D3] 2,000 UNIT capsule 2,000 unit PO DAILY Flintstones Complete Tablet,Chewable 2 tab PO DAILY PRN PRN Discharge Instructions Additional Instructions: Followup yearly for urinalysis Activity:: Activity as Tolerated Shower/Bathe:: 24 hours Diet:: As Tolerated Discharge Orders Discharge Orders: Discharge Order (Routine); Ordered 08/02/23 Ordered By: Huy Stuart DS: Diagnosis Discharge Diagnosis (1) Microscopic hematuria: Status: Acute
[2023-08-02 13:16] VITALS: BP 110/74; PULSE 68; RESP 16; TEMP 36.4; O2SAT 94
[2023-08-02 13:50] VITALS: BP 97/62; PULSE 63; RESP 16; TEMP 36.7; O2SAT 96
--- NOTE | 2023-08-02 14:10 | W.ANESPOSTOP ---
Postoperative Evaluation Date, Time and Location Date Performed: 08/02/23 Time Performed: 13:16 Patient Location: Day Surgery Unit Vital Signs Most Recent Imported Vital Signs: Most Recent Vital Signs Temp Pulse Resp BP Pulse Ox 36.7 C 63 16 97/62 L 96 08/02/23 13:50 08/02/23 13:50 08/02/23 13:50 08/02/23 13:50 08/02/23 13:50 1316 VS appropriate (reviewed at bedside). Pain Score Most Recent Pain Score: Most Recent Pain Score Pain Level 0 08/02/23 13:50 Assessment Mental Status: Awake (Alert & Oriented to Patient Baseline) Airway and Respiratory Function: Patent airway with normal (patient baseline) respiratory exam Cardiovascular Function: Hemodynamically Stable Hydration Status: Adequately Hydrated Nausea & Vomiting: No Nausea or Vomiting Pain: Pt. Denies Any Pain Peripheral Nerve Block: Patient did not receive a nerve block
== END 2023-08-02 14:25 | disposition home or self-care (01) ==
PROVIDERS: PCP Nurse Practitioner Family; Visit Provider Urology
PROC: 0TBB8ZZ Excision of Bladder, Via Natural or Artificial Opening Endoscopic (ICD-10-PCS; CPT 52000; principal; 2023-08-02 13:00)
DX: N36.2 Urethral caruncle (principal); R31.29 Other microscopic hematuria; N20.0 Calculus of kidney; N81.10 Cystocele, unspecified
CPT/HCPCS: 52000; J0131; J0690; J1885; J2405

== ENCOUNTER 2023-09-24 00:58 | Outpatient (CLI) | payer BC, SELFPAY ==
[2023-09-24 12:23] LABS: HCT 39.2 % (36.0-46.0); HGB 12.7 g/dL (11.2-15.7); MCH 30.5 pg (27.0-33.0); MCHC 32.4 % (32.0-36.0); MCV 94 fL (80-95); MPV 11.4 fL (8.0-11.0); Platelet Count 248 10^3/uL (130-400); RBC 4.16 10^6/uL (3.93-5.22); RDW 12.6 % (11.7-14.6); RDW-SD 43.8 fL; WBC 5.92 10^3/uL (4.4-10.8)
[2023-09-24 12:49] LABS: Anion Gap 8.8 mmol/L (3-11); BUN 15 mg/dL (7-18); CO2 27.2 mmol/L (21.0-32.0); CREATININE 0.9 mg/dL (0.55-1.02); Calcium 9.3 mg/dL (8.5-10.1); Calculated LDL 115 mg/dL (<100); Chloride 105 mmol/L (98-107); Cholesterol 198 mg/dL (<200); Estimated GFR 71.39 (mL/min/1.73m2); Glucose 103 mg/dL (74-106); HDL Cholesterol 68 mg/dL (40-60); Potassium 4.1 mmol/L (3.5-5.1); Sodium 141 mmol/L (136-145); TSH (W/Ref FT4) 1.74 uIU/mL (0.36-3.74); Triglyceride 76 mg/dL (<150)
== END 2023-09-24 00:59 | disposition home or self-care (01) ==
PROVIDERS: PCP Nurse Practitioner Family; Visit Provider Nurse Practitioner Family
DX: R73.03 Prediabetes (principal); Z00.00 Encounter for general adult medical examination without abnormal findings
CPT/HCPCS: 36415; 80048; 80061; 85027; 83036; 84443

== ENCOUNTER → 2023-10-04 02:24 | Outpatient (CLI) | payer BC, SELFPAY ==
--- NOTE | 2023-10-04 09:00 | DI.MAMMO_ITS ---
Exam(s) MAMMO SCREENING EXAM: MAMMO SCREENING CLINICAL HISTORY: screening,z12.39 TECHNIQUE: Mammograms were interpreted according to the usual protocol including computer analysis w ISVS CAD system, tomosynthesis and C-view imaging. COMPARISON: 2014 through 2020 FINDINGS: The breasts are composed of scattered fibroglandular densities, Breast Density category B. No suspicious masses or suspicious microcalcifications are seen. No skin thickening or abnormal axillary lymph nodes are seen. There has been no significant change from prior exams. IMPRESSION: BI-RADS Category 1, Negative mammogram Yearly screening mammography is recommended. Breast Density - Category B, scattered fibroglandular densities. A negative radiographic report should not delay biopsy if a dominant or clinically suspicious mass is present. Up to ten percent of cancers are not identified on mammography. A negative report may reinforce clinical impression. Adenosis and dense breasts may obscure an underlying neoplasm. False positive reports average 6 to 10%. Patient will receive a letter notifying them of these results.
== END ==
PROVIDERS: PCP Nurse Practitioner Family; Visit Provider Nurse Practitioner Family
DX: Z12.31 Encounter for screening mammogram for malignant neoplasm of breast (principal); R92.323 Mammographic fibroglandular density, bilateral breasts
CPT/HCPCS: 77063; 77067

== ENCOUNTER 2023-10-18 12:01 | Outpatient (REF) | payer BC, SELFPAY ==
--- NOTE | 2023-10-18 11:20 | PAPFT_PTH ---
PATIENT: Maegna Putnam LOC: [facility] U#:[id number] AGE/SX: 63/F ROOM: RE10/18/[address]: Indu Main MD : 1960 BED: DIS: 10/18/2023 SPEC #: [id number] RECD: 10/18/23 17:30 STATUS: JACIEL REConor #: [id number] ELADIO: 10/18/23 11:[address]: Indu Main DEPT: COUNT INCLUDES THE [facility] Cytology RECD BY: Maren Harrison ENTERED: 10/18/23 17:31 SP TYPE: PAPFT OTHR DR: Valarie Storm, ALESSANDRA Tissues: 1 - CX/ENDOCX FOR PAP SMEARS Procedures: PAP THIN PREP/UVM Screening HPV DNA PROBE Comments: [id number]
== END 2023-10-18 12:02 | disposition home or self-care (01) ==
LOC: LBN 12:01
PROVIDERS: PCP Nurse Practitioner Family; Visit Provider Obstetrics & Gynecology
DX: Z12.4 Encounter for screening for malignant neoplasm of cervix (principal)
CPT/HCPCS: 88142; 87624

== ENCOUNTER 2024-09-26 01:15 | Outpatient (CLI) | payer MEDICARE, SELFPAY ==
[2024-09-26 13:13] LABS: Hemoglobin A1C 5.9 % (<5.7)
[2024-09-26 13:32] LABS: ALT 22 U/L (14-59); AST 22 U/L (15-37); Albumin 3.7 g/dL (3.4-5.0); Alkaline Phosphatase 96 U/L (46-116); Anion Gap 7.2 mmol/L (3-11); BUN 15 mg/dL (7-18); Bilirubin, Total 0.59 mg/dL (0.2-1.0); CO2 27.8 mmol/L (21.0-32.0); CREATININE 0.9 mg/dL (0.55-1.02); Calcium 9.4 mg/dL (8.5-10.1); Calculated LDL 117 mg/dL (<100); Chloride 108 mmol/L (98-107); Cholesterol 198 mg/dL (<200); Estimated GFR 70.95 (mL/min/1.73m2); Glucose 94 mg/dL (74-106); HDL Cholesterol 67 mg/dL (40-60); Potassium 4.2 mmol/L (3.5-5.1); Sodium 143 mmol/L (136-145); Total Protein 7.7 g/dL (6.4-8.2); Triglyceride 70 mg/dL (<150); Vitamin D 25 Total 29.6 ng/mL (30-100)
== END 2024-09-26 01:16 | disposition home or self-care (01) ==
LOC: LOS 01:15
PROVIDERS: PCP Nurse Practitioner Family; Visit Provider Nurse Practitioner Family
DX: R79.89 Other specified abnormal findings of blood chemistry (principal); R73.03 Prediabetes; E55.9 Vitamin D deficiency, unspecified; Z00.00 Encounter for general adult medical examination without abnormal findings; K63.5 Polyp of colon
CPT/HCPCS: 36415; 80053; 80061; 82306; 83036

== ENCOUNTER 2024-10-09 02:03 | Outpatient (CLI) | payer MEDICARE, SELFPAY ==
--- NOTE | 2024-10-09 06:15 | DI.DEXA_ITS ---
Exam(s) XR DEXA BONE DENSITY W/WO JUAN CARLOS EXAM: XR DEXA BONE DENSITY W/WO JUAN CARLOS CLINICAL HISTORY: screening for osteoporosis in postmenopausal woman,z78.0 TECHNIQUE: Routine DEXA evaluation of the lumbar spine, hip, or forearm. COMPARISON: CR XR DEXA BONE DENSITY W/WO JUAN CARLOS from 10/19/2021 FINDINGS: Performed on a HoloSocure unit. Lateral image: No compression fracture evident. Lumbar Spine total T-score: -2.1. Prior reading October 2021 was -2.0 Hip total T-score:0.2. Prior reading was 0.4. Independent reading at the level of the femoral neck yields T-score of -0.4 Forearm total T-score: -0.3 IMPRESSION: Bone mineral density measures in the normal range for the hip and forearm but in osteopenia range for the lumbar spine. Therefore fracture risk is moderate. Note: Any spine fracture indicates 5x risk for subsequent spine fracture and 2x risk for subsequent h ip fracture. World Health Organization criteria for BMD interpretation classify patients: Normal...... T- Score at or above -1.0 Osteopenic... T- Score between -1.0 and -2.5 Osteoporosis... T-Score at or below -2.5
--- NOTE | 2024-10-09 08:25 | DI.MAMMO_ITS ---
Exam(s) MAMMO SCREENING EXAM: MAMMO SCREENING CLINICAL HISTORY: screening,z12.39. TECHNIQUE: Bilateral full field digital CC and MLO mammographic images were obtained with 3D tomosyn thesis and utilizing computer aided detection (CAD). COMPARISON: Prior mammograms were reviewed. FINDINGS: There has been no significant change in the appearance and distribution of the fibroglandular tissue. There are no CAD designations. There are no new spiculated masses nor malignant appearing microcalcification groups. There is no significant architectural distortion nor skin thickening-retraction. IMPRESSION: No radiographic evidence of malignancy. BI-RADS Category 1 - Negative Breast Density - Category B - Scattered areas of fibroglandular density Breast density Category C or D implies that the patient has dense breast tissue. Dense breast tissue can make it harder to find cancer on a mammogram. Dense breast tissue is also associated with an incr eased risk of breast cancer. This information about the result of the mammogram report was provided to the patient to raise their awareness. Use this report when you speak with the patient about their risks for breast cancer, which includes their family history. At that time, you may recommend additional screening tests (Ultrasoun d or MRI) as these tests may add significant information. A negative radiographic report should not delay biopsy if a dominant or clinically suspicious mass is present. Up to ten percent of cancers are not identified on mammography. A negative report may reinforce clinical impression. Adenosis and dense breasts may obscure an underlying neoplasm. False positive reports average 6 to 10%. Patient will receive a letter notifying them of these results.
== END 2024-10-09 02:23 ==
LOC: DI 02:03
PROVIDERS: PCP Nurse Practitioner Family; Visit Provider Nurse Practitioner Family
DX: Z78.0 Asymptomatic menopausal state (principal); Z12.31 Encounter for screening mammogram for malignant neoplasm of breast; Z13.820 Encounter for screening for osteoporosis; M81.0 Age-related osteoporosis without current pathological fracture
CPT/HCPCS: 77063; 77067; 77080

== ENCOUNTER → 2024-11-13 11:04 | Outpatient (BNVA) | payer MEDICARE, SELFPAY | PROVIDERS: PCP Nurse Practitioner Family; Referring Provider Nurse Practitioner Family; Visit Provider Physical Therapy Assistant | DX: Z12.11 Encounter for screening for malignant neoplasm of colon (principal); Z86.0100 Personal history of colon polyps, unspecified ==

== ENCOUNTER 2024-11-28 09:09 | Day surgery (SDC) | payer MEDICARE, SELFPAY ==
--- NOTE | 2024-11-27 14:55 | W.PM.DSUDISC ---
Date of service: 11/28/24 Discharge Plan Disposition Patient Disposition: Home Condition: Good Discharge Details Reason For Visit: screening colonoscopy Attending Provider: Oskar Zepeda Primary Care Provider: Valarie Storm Home Meds and New Rx's Prescriptions: Continued cholecalciferol (vitamin D3) [Vitamin D3] 2,000 UNIT capsule 2,000 unit PO DAILY Flintstones Complete Tablet,Chewable 2 tab PO DAILY PRN PRN Discontinued bisacodyl [Dulcolax (bisacodyl)] 5 mg tablet,delayed release (DR/EC) 5 mg PO ONCE Qty: 4 0RF Rx Instructions: Take per colonoscopy instructions provided by ordering providers office polyethylene glycol 3350 17 gram/dose powder 17 g PO ONCE Qty: 238 0RF Rx Instructions: Take per colonoscopy instructions provided by ordering providers office Discharge Instructions Instructions: Colon polyps, Diverticulosis Additional Instructions: Maegan, I hope you are comfortable through today's colonoscopy. Everything went very smoothly. Your prep was excellent and I could see everything fine. I did find and remove a single polyp today. It is quite small, and I do not think it has anything at all to be alarmed about. This will be sent off for testing since polyps 2, different varieties, and we use the information from the analysis of the polyp to help guide the timing of your next colonoscopy. Incidentally, you also have a little bit of diverticulosis. Diverticula are little pockets or pouches that formed in the muscular portion of the colon wall. They can get infected or inflamed from time to time during flareups that we refer to as diverticulitis. Hopefully, years do not ever bother you. Certainly, the polyp that was removed could have caused the Cologuard to be positive, and there is also some thought that patients with diverticulosis have higher rates of false positive Cologuard testing as well, so we have 2 possible explanations. Once I have the results of the polyp analysis, my office will be in touch with any other recommendations. In the meantime, if you need anything or have any questions at all, please do not hesitate to ask. 1. If tolerated, consume a soft, low fiber diet for 1-2 days. 2. Do not drive, drink alcohol, operate machinery, make critical decisions, or do activities that require coordination or balance for 24 hours. 3. Because air was put into your colon during the procedure, expelling air from your rectum (passing gas or farting) is normal. 4. You may not have a bowel movement for 1-3 days because of the colonoscopy prep. This is normal. 5. Go directly to the emergency room if you notice any of the following: Develop chills (warm to touch), or if you have a thermometer and your temperature is above 101 Difficulty breathing or difficultly swallowing Persistent vomiting Severe abdominal pain, other than gas cramps Severe chest pain Black, tarry stools Any bleeding ? exceeding one tablespoon 6. Call your physician if the site where your intravenous was started becomes red, swollen, painful, and warm to touch. 7. Your physician has reviewed your pre-procedure medications. Please continue to take those medications as previously ordered. You will be given specific information/education regarding any changes to your medications before leaving. Activity:: Activity as Tolerated Diet:: As Tolerated Discharge Orders Discharge Orders: Discharge Order (Routine); Ordered 11/27/24 Ordered By: Oskar Zepeda DS: Diagnosis Discharge Diagnosis (1) Encounter for screening colonoscopy: Status: Acute Asessment and Plan: Follow-up on polypectomy results
--- NOTE | 2024-11-27 14:57 | COLE_ITS ---
Date of service: 11/28/24 Time of Service: 10:53 Colonoscopy Report Date of procedure: 11/28/24 Pre-op diagnosis general: screening colonoscopy Post-op diagnosis procedure note: other (Diverticulosis, colon polyp) Procedure: colonoscopy with polypectomy Surgeon: Oskar Zepeda Anesthesia Type: General:No Airway Estimated blood loss (mL): 5 Pathology: other (0.25 cm flat polyp at 20 cm from the anal verge) Complications: None Disposition: same day Indications: Maegan is a 64 year old woman with a history of hyperplastic polyps who needs her next screening colonoscopy Prep: Miralax/Dulcolax Procedure Start Time: 10:31 Procedure End Time: 10:44 Retraction Time: 7 Findings: Sigmoid diverticulosis, 0.25 cm flat polyp at 20 cm from the anal verge Procedure Description: After the induction of anesthesia, and with the patient in left lateral decubitus position, I began by performing an external anorectal exam.? Perineum and skin were normal, as was the anal verge.? There was no evidence of external hemorrhoids.? Next, I performed a digital rectal exam.? I did not appreciate any abnormal findings.? Next, I advanced a colonoscope into the rectal vault.? I performed retroflexion.? This appeared normal.? Using insufflation, I then advanced the colonoscope beyond the rectal folds and into the sigmoid colon before advancing towards the cecum.? The quality of the prep was excellent.? There is sigmoid diverticulosis. The scope was noted to be in the cecum by identification of the ileocecal valve and appendiceal orifice.? I then began withdrawing the colonoscope using repeated irrigation as necessary for full evaluation of the colonic mucosa. Around 20 cm from the anal verge I identified a 0.25 cm polyp. ?It appeared flat in character. ?I was able to remove this with a cold forcep polypectomy. ?I examined the site, and there was minimal bleeding. ?Once this was completed, I continued to withdraw the scope and examine the remainder of the colonic mucosa.?Once the scope was withdrawn to the level of the rectum, great care was taken to examine portions of the rectal folds.? Finally, the scope was withdrawn and the patient was brought to the same-day surgery recovery unit as the anesthetic wore off. ?The findings and instructions were shared with the patient prior to discharge. Wellington Bowel Prep Wellington Bowel Prep Right Colon: 3 Left Colon: 3 Transverse Colon: 3 Total Score: 9
[2024-11-28 09:42] VITALS: BP 116/74; PULSE 55; RESP 16; TEMP 36.3; O2SAT 96
[2024-11-28] MEDS: Lactated Ringers 1,000 ML 80 ML IV (09:55)
[2024-11-28 10:00] VITALS: BMI 31.6
--- NOTE | 2024-11-28 10:00 | W.ANESPRE ---
General Info Date of Service Date Performed: 11/28/24 Height: 5 ft 2.5 in Weight: 79.9 kg Body Mass Index (BMI): 31.6 Surgical Procedure: Operation Date: 11/28/24 10:05 Proposed Procedure Side Surgeon p Colonoscopy Oskar Zepeda MD Meds Allergies and Home Medications Allergies Allergy/AdvReac Type Severity Reaction Status Date / Time No Known Allergies Allergy Verified 11/28/24 09:38 Home Medication ?Medication ?Instructions ?Recorded cholecalciferol (vitamin D3) 50 2,000 unit PO DAILY 07/04/17 mcg (2,000 unit) capsule (Vitamin D3) pediatric multivitamin no.76 2 tab PO DAILY PRN PRN 09/16/18 (Flintstones Complete chewable tablet) Current Visit Medications: Current Medications Generic Name Dose Route Start Last Admin Trade Name Freq PRN Reason Stop Dose Admin Ringer's Solution 1,000 mls @ 80 mls/hr 11/28/24 09:00 11/28/24 09:55 IV 12/28/24 08:59 80 mls/hr INFUSION ADDI Administration IV Miscellaneous Supplies 1 each 11/28/24 06:00 Iv Access IV 11/28/24 23:59 DIRECTED ADDI Ondansetron HCl 4 mg 11/27/24 14:58 Ondansetron 4 Mg/2 Ml Vial IVP 12/27/24 14:57 Q4H PRN PRN Nausea / Vomiting Sodium Chloride 0 ml 11/28/24 06:00 Normal Saline Flush 10 Ml Syr IV 11/28/24 23:59 PRN PRN Sodium Chloride 0 ml 11/28/24 06:00 Normal Saline 10 Ml Vial IJ 11/28/24 23:59 DIRECTED PRN Sterile Water 0 ml 11/28/24 06:00 Water,Injection,Sterile 10 Ml Vial IJ 11/28/24 23:59 DIRECTED PRN PFSH Active Problems Active Problems: Problem Status Onset Code Encounter for screening colonoscopy Acute Z12.11 Positive colorectal cancer screening using Cologuard test Acute ~10/08/24 R19.5 Prediabetes Acute R73.03 Hyperhidrosis Acute R61 Varicose veins of both lower extremities Acute I83.93 Colon polyp Acute K63.5 Microscopic hematuria Acute R31.29 Medical History Medical History Stress incontinence in female Skin lesions, generalized Seen by [facility] dermatology: -Lichen Planopilaris, continue clobetasol. Low vitamin D level Alopecia Shoulder pain Right shoulder patient will have a rotator cuff repair in September 2018 Sebaceous cyst of labia small multiple lesions on bilateral labia majora Right rotator cuff tear S/P arthroscopic repair on 09/19/2018 Allergic rhinitis Surgical History Surgical History Hx of cystoscopy Hx of colonoscopy History of surgical procedure on mouth Pt. states she had a wart removed from her Uvula by Dr. Huertas done at office History of eye surgery Lazy eye surgery age 4, left Cystoscopy Tobacco Smoking/Tobacco Use Status: Never Passive smoking exposure: Yes Second hand exposure: Yes Alcohol Alcohol Intake: current Alcohol intake frequency: a few times a month Alcohol type: wine Details: occasional Substance Use Substance use: Never Substance use type: does not use Details: alcohol: t-7, a glass of wine Prental History History 4 Para Hx # Term Pregnancies 3 Multiple births Hx # Pregnancies Ectopic pregnancies AB induced Hx Number of Living Children AB spontaneous Vital Signs and Lab Results Vital Signs Most Recent Vital Signs in EMR: Most Recent Vital Signs Temp Pulse Resp BP Pulse Ox 36.3 C L 55 L 16 116/74 96 11/28/24 09:42 11/28/24 09:42 11/28/24 09:42 11/28/24 09:42 11/28/24 09:42 Lab Results Blood Type / Crossmatch: No Data to Display Complete Blood Count: No Data to Display Complete Metabolic Panel: No Data to Display Liver Function Panel: No Data to Display Coagulation Panel: No Data to Display Cardiac Panel: No Data to Display Arterial Blood Gas: No Data to Display Venous Blood Gas: No Data to Display Pancreas Panel: No Data to Display Thyroid Panel: No Data to Display Infectious Disease: No Data to Display Blood Cultures: No Data to Display Toxicology Panel: No Data to Display Anesthesia Assessment and Plan Anesthesia History Personal History: No History of Anesthesia Complications Family History: No Family History of Anesthesia Complications Exercise Tolerance Exercise Tolerance: Metabolic Equivalents>4 Pertinent Negatives Pertinent Negatives: No Symptoms of GERD Cardiac & Pulmonary Exam Cardiac Exam: Normal S1/S2 Heart Sounds Pulmonary Exam: Clear Bilateral Breath Sounds Implantable Cardiac Device Does patient have a Pacemaker or an ICD?: No Airway Exam Known Difficult Airway: No Mallampati Class: 2 Mouth Opening: Normal (> 3cm) Thyromental Distance: Greater than 3 cm Neck Range of Motion: Full ROM Neck Circumference: Normal Teeth Condition: Normal Dentition ASA Classification ASA Score: ASA 2 Emergency Case?: No NPO Status NPO Status: NPO Clears >2 hours, Solids >8 hours Anesthesia Plan Resuscitation Status: Full Code Anesthesia Technique: General Anesthesia Airway Planned: Natural Airway Monitors Used: Standard Monitors
--- NOTE | 2024-11-28 10:43 | BOWEL_PTH ---
PATIENT: Maegan Putnam LOC: [facility] U#:[id number] AGE/SX: 64/F ROOM: RE11/28/[address]: Oskar Zepeda MD : 1960 BED: DIS: 11/28/2024 SPEC #: [id number] RECD: 11/28/24 13:09 STATUS: JACIEL RE #: [id number] ELADIO: 11/28/24 10:[address]: Oskar Zepeda DEPT: Surgical Specimen RECD BY: Maren Harrison ENTERED: 11/28/24 13:10 SP TYPE: Bowel OTHR DR: Valarie Storm, ALESSANDRA Tissues: 1 - BIOPSY BOWEL Procedures: GROSS AND MICRO LEVEL 4 Comments: [id number]
[2024-11-28 10:51] VITALS: BP 102/76; PULSE 65; RESP 17; TEMP 36.1; O2SAT 97
--- NOTE | 2024-11-28 11:02 | W.ANESPOSTOP ---
Postoperative Evaluation Date, Time and Location Date Performed: 11/28/24 Time Performed: 11:02 Patient Location: Day Surgery Unit Vital Signs Most Recent Imported Vital Signs: Most Recent Vital Signs Temp Pulse Resp BP Pulse Ox 36.1 C L 65 17 102/76 97 11/28/24 10:51 11/28/24 10:51 11/28/24 10:51 11/28/24 10:51 11/28/24 10:51 Pain Score Most Recent Pain Score: Most Recent Pain Score Pain Level 0 11/28/24 09:42 Assessment Mental Status: Awake (Alert & Oriented to Patient Baseline) Airway and Respiratory Function: Patent airway with normal (patient baseline) respiratory exam Cardiovascular Function: Hemodynamically Stable Hydration Status: Adequately Hydrated Nausea & Vomiting: No Nausea or Vomiting Pain: Pt. Denies Any Pain Peripheral Nerve Block: Patient did not receive a nerve block
[2024-11-28 11:33] VITALS: BP 122/79; PULSE 46; RESP 20; TEMP 36.1; O2SAT 100
== END 2024-11-28 11:32 | disposition home or self-care (01) ==
LOC: SUR 09:10
PROVIDERS: PCP Nurse Practitioner Family; Visit Provider Surgery
PROC: 0DJD8ZZ Inspection of Lower Intestinal Tract, Via Natural or Artificial Opening Endoscopic (ICD-10-PCS; CPT 45378; principal; 2024-11-28 10:00)
DX: Z12.11 Encounter for screening for malignant neoplasm of colon (principal); K63.5 Polyp of colon; K57.30 Diverticulosis of large intestine without perforation or abscess without bleeding
CPT/HCPCS: 45380; 88305; J2704

== ENCOUNTER 2025-09-29 00:38 | Outpatient (CLI) | payer MEDICARE, SELFPAY ==
[2025-09-29 09:47] LABS: Hemoglobin A1C 6.1 % (<5.7)
[2025-09-29 09:56] LABS: ALT 26 U/L (14-59); AST 23 U/L (15-37); Albumin 3.7 g/dL (3.4-5.0); Alkaline Phosphatase 90 U/L (46-116); Anion Gap 9.3 mmol/L (3-11); BUN 14 mg/dL (7-18); Bilirubin, Total 0.6 mg/dL (0.2-1.0); CO2 26.7 mmol/L (21.0-32.0); Calcium 9.0 mg/dL (8.5-10.1); Chloride 107 mmol/L (98-107); Cholesterol 195 mg/dL (<200); Glucose 88 mg/dL (74-106); HDL Cholesterol 59 mg/dL (>or=50); Potassium 4.1 mmol/L (3.5-5.1); Sodium 143 mmol/L (136-145); Total Protein 7.5 g/dL (6.4-8.2)
== END 2025-09-29 00:39 | disposition home or self-care (01) ==
LOC: LBO 00:38
PROVIDERS: PCP Nurse Practitioner Family; Visit Provider Nurse Practitioner Family
DX: R73.03 Prediabetes (principal); E78.00 Pure hypercholesterolemia, unspecified
CPT/HCPCS: 36415; 80053; 80061; 83036

== ENCOUNTER → 2025-10-12 02:15 | Outpatient (CLI) | payer MEDICARE, SELFPAY ==
--- NOTE | 2025-10-12 11:48 | DI.MAMMO_ITS ---
Exam(s) MAMMO SCREENING EXAM: MAMMO SCREENING CLINICAL HISTORY: screening,z12.39 TECHNIQUE: Bilateral full field digital CC and MLO mammographic images were obtained with 3D tomosynthesis and utilizing computer aided detection (CAD). COMPARISON: Comparison is made with prior examinations. FINDINGS: Masses/Architectural Distortion: No suspicious masses or areas of architectural distortion are present. Microcalcifications: No suspicious pleomorphic-type are seen. Skin Thickening/Nipple Retraction: None. IMPRESSION: 1. No significant interval change with no specific features of malignancy noted. 2. Unless there is more urgent need, screening mammography is recommended, as per [employer] guidelines. BI-RADS Category 1 - Negative Breast Density - Category B - There are scattered areas of fibroglandular density. Breast density Category C or D implies that the patient has dense breast tissue. Dense breast tissue can make it harder to find cancer on a mammogram. Dense breast tissue is also associated with an increased risk of breast cancer. This information about the result of the mammogram report was provided to the patient to raise their awareness. Use this report when you speak with the patient about their risks for breast cancer, which includes their family history. At that time, you may recommend additional screening tests (Ultrasound or MRI) as these tests may add significant information. A negative radiographic report should not delay biopsy if a dominant or clinically suspicious mass is present. Up to ten percent of cancers are not identified on mammography. A negative report may reinforce clinical impression. Adenosis and dense breasts may obscure an underlying neoplasm. False positive reports average 6 to 10%. Patient will receive a letter notifying them of these results.
== END ==
LOC: DI 02:15
PROVIDERS: PCP Nurse Practitioner Family; Visit Provider Nurse Practitioner Family
DX: Z12.31 Encounter for screening mammogram for malignant neoplasm of breast (principal)
CPT/HCPCS: 77063; 77067